=== PATIENT | female | born 1985 | race Caucasian/White ===

== ENCOUNTER 2017-02-09 00:08 | Emergency (ER) | payer OTHER ==
[~2017-02-09] VITALS: Ht 162.6 cm; Wt 59.0 kg
--- NOTE | 2017-02-09 00:10 | NUR ---
PATIENT BROUGHT IN BY [facility] FROM [facility] FOR OVERDOSE. PER REPORT FROM RESCUE PATIENT TOOK 6 TABS OF XANAX OF UNKOWN DOSE. BLOOD SUGAR ON THE FIELD WAS 63. PATIENT AROUSABLE BUT SLURRED SPEECH.PINPOINT PUPILS UPON ARRIVAL. MD AT BEDSIDE...
--- NOTE | 2017-02-09 00:20 | NUR ---
ER STAFF MEMBERS ATTEMPTING TO PLACE HEP LOCK ON PATIENT BUT PATIENT REFUSING TO STAY STILL FOR HEP LOCK PLACEMENT. DR BUSH MADE AWARE
[2017-02-09] MEDS ORDERED: NALOXONE HCL 0.4 MG/ML AMPUL IM ONE ×3 (00:30→05:15)
--- NOTE | 2017-02-09 00:30 | NUR ---
Line placed in left wrist IV, pt removed line, stating she didnt need it, states she wants to leave hspt, pt stated "you cant keep me here, if i dont want to be here."
[2017-02-09] MEDS ORDERED: NALOXONE HCL 0.4 MG/ML AMPUL ONE ×3 (00:32→05:26)
--- NOTE | 2017-02-09 00:45 | NUR ---
PT WAS GIVEN NARCAN, PT BEGAN TO YELL THAT SHE WANTED TO LEAVE, PT STATED "YOU CAN NOT KEEP ME HERE, I DONT WANT TO BE HERE." ERMD ASSESSED LEVEL OF CONCIOUSNESS, PT ALERT, ORIENTED X 4, (NAME, PLACE, TIME, SITUATION). PT ASKED IF SOMEONE COULD PICK HER UP SHE STATED SHE DID NOT HAVE ANY OF HER FRIENDS OF FAMILY INFO TO CONTACT THEM... PT STOOD UP AND WALKED UNASSISTED OUT OF ER WITH STEADY GAIT... ERMD NOTIFIED....
--- NOTE | 2017-02-09 00:47 | NUR ---
SECURITY ALERTED THAT PT LEAVING, ADVISED SECURITY PT IN RESTROOM, ADVISED TO MONITOR PT MOVEMENT...
--- NOTE | 2017-02-09 00:55 | NUR ---
PATIENT AFTER RECIEVING IM NARCAN PATIENT SPOKE WITH CLEAR SPEECH,A/OX3 AND STATING TO STAFF MEMBERS "I AM LEAVING,YOU CAN'T HOLD ME." PATIENT WALKED OUT OF ER. SECRUITY WAS CALLED AND INFORM PATIENT ELOPED FROM ER AND PATIENT IS IN RESTROOM ER WAITING. INFORM SECRUIY FOR SAFETY OF PATIENT AND OTHER PATIENT IN WAITING ROOM.
--- NOTE | 2017-02-09 01:05 | NUR ---
SECURITY CALLED ER, STATING PT OUTSIDE OF [facility] WITH ALTERED LEVEL OF CONCIOUSNESS, ALSO STATING PT DEFECATED IN PANTS, PT PLACED IN WHEELCHAIR, MOVED TO ROOM, AND CLEANED...
[2017-02-09] MEDS ORDERED: IV NORMAL SALINE 1000 ML BAG IV ONE (01:15)
--- NOTE | 2017-02-09 01:30 | NUR ---
RESTRAINTS PLACED PT IS AGITATED AND COMBATIVE, AND TRYING TO GET OUT OF BED, PT RESISTING MEDICAL TREATMENT, PT NOT ABLE TO STAND ON OWN, PT IS RESTLESS, AND ATTEMPTING TO LEAVE HSP[facility] WITH ALTERED MENTAL STATUS...
--- NOTE | 2017-02-09 01:45 | NUR ---
PHARMACY NOTE: NORMAL SALINE NOT GIVEN, PT PULLED OUT IV LINE, AND REFUSED TO HAVE IV PUT IN...
--- NOTE | 2017-02-09 01:45 | NUR ---
PT CONTINUES IN RESTRAINTS, IN BED, IN SUPINE POSITION, PT CONTINUES TO BE RESTLESS, YELLING AND SCREAMING...
--- NOTE | 2017-02-09 01:50 | NUR ---
pt has laniard with [employer] knife, with small compartment, black residue found inside compartment...pt possibly abused drugs in restroom after walking out, which would account for altered mental status....
[2017-02-09 01:58] LABS: BASOPHILS # (AUTO) 0.1 K/uL (0.0-8.0); BASOPHILS % (AUTO) 0.6 % (0.0-2.0); EOSINOPHILS # (AUTO) 0.2 K/uL (0.0-0.7); EOSINOPHILS % (AUTO) 2.1 % (0.0-7.0); HEMATOCRIT 40.7 % (37-47); HEMOGLOBIN 13.6 G/DL (12.0-16.0); LYMPHOCYTES # (AUTO) 2.2 K/uL (20.0-40.0); LYMPHOCYTES % (AUTO) 21.9 % (20.5-51.5); MEAN CORPUSCULAR HEMOGLOBIN 28.4 UUG (27.0-31.0); MEAN CORPUSCULAR HGB CONC 34 g/dL (32.0-37.0); MEAN CORPUSCULAR VOLUME 84.8 FL (81.0-99.0); MONOCYTES # (AUTO) 0.8 K/uL (2.0-10.0); MONOCYTES % (AUTO) 7.5 % (0.0-11.0); NEUTROPHILS # (AUTO) 6.8 K/uL (1.8-8.9); NEUTROPHILS % (AUTO) 67.9 % (38.5-71.5); PLATELET COUNT (AUTO) 446 K/UL (150-450); RED CELL DISTRIBUTION WIDTH 12.9 % (11.5-14.5); WHITE BLOOD COUNT (AUTO) 10.1 K/UL (4.0-11.2)
--- NOTE | 2017-02-09 02:00 | NUR ---
PT CONTINUES RESTING IN BED, PT OFFERED FOOD, WATER, TOILETTING, ETC, PT REFUSED... WILL CONTINUE TO MONITOR FOR SAFETY, COMFORT, AND PAIN...
--- NOTE | 2017-02-09 02:15 | NUR ---
PT CONTINUES IN RESTRAINTS, RESTLESS, AGITATED, YELLING, AND SCREAMING... PT OFFERED DRINK, PT REFUSED...
[2017-02-09 02:27] LABS: AMMONIA < 10 umol/L (11-32)
[2017-02-09 02:29] LABS: ALANINE AMINOTRANSFERASE 34 U/L (14-59); ALBUMIN 3.5 g/dL (3.4-5.0); ALKALINE PHOSPHATASE 143 U/L (50-136); ASPARTATE AMINOTRANSFERASE 24 U/L (15-37); BILIRUBIN,DIRECT 0.1 mg/dL (0.0-0.2); BILIRUBIN,TOTAL 0.5 mg/dL (0.2-1.0); CARBON DIOXIDE 30 mmol/L (21-32); CHLORIDE 103 mmol/L (98-107); CREATININE 0.8 mg/dL (0.6-1.3); GFR 84 mL/min (>60); GLUCOSE 115 mg/dL (74-106); POTASSIUM 4.2 mmol/L (3.5-5.1); SODIUM SERUM 141 mmol/L (136-145); TOTAL PROTEIN, SERUM 7.5 g/dL (6.4-8.2); UREA NITROGEN, BLOOD 10 mg/dL (7-18)
[2017-02-09 02:30] LABS: ACETAMINOPHEN < 2.0 ug/mL (10-30)
--- NOTE | 2017-02-09 02:30 | NUR ---
PT CONTINUES IN RESTRAINTS, IN BED, AGITATED, RESTLESS... PT OFFERED FOOD, WATER, TOILETTING, ETC, PT REFUSED... WILL CONTINUE TO MONITOR FOR SAFETY, COMFORT, AND PAIN...
[2017-02-09 02:38] LABS: ETHANOL < 3 MG/DL (0-0)
--- NOTE | 2017-02-09 02:45 | NUR ---
PT CONTINUES IN RESTRAINTS, IN BED, AGITATED, RESTLESS... PT OFFERED FOOD, WATER, TOILETTING, ETC, PT REFUSED... WILL CONTINUE TO MONITOR FOR SAFETY, COMFORT, AND PAIN..
--- NOTE | 2017-02-09 03:00 | NUR ---
PT CONTINUES IN RESTRAINTS, IN BED, AGITATED, RESTLESS... PT OFFERED FOOD, WATER, TOILETTING, ETC, PT REFUSED... WILL CONTINUE TO MONITOR FOR SAFETY, COMFORT, AND PAIN..
--- NOTE | 2017-02-09 03:15 | NUR ---
PT CONTINUES IN RESTRAINTS, IN BED, AGITATED, RESTLESS... PT OFFERED FOOD, WATER, TOILETTING, ETC, PT REFUSED... WILL CONTINUE TO MONITOR FOR SAFETY, COMFORT, AND PAIN..
--- NOTE | 2017-02-09 03:30 | NUR ---
PT CONTINUES IN RESTRAINTS, IN BED, AGITATED, RESTLESS... PT OFFERED FOOD, WATER, TOILETTING, ETC, PT REFUSED... WILL CONTINUE TO MONITOR FOR SAFETY, COMFORT, AND PAIN..
--- NOTE | 2017-02-09 03:45 | NUR ---
PT CONTINUES IN RESTRAINTS, IN BED, AGITATED, RESTLESS... PT OFFERED FOOD, WATER, TOILETTING, ETC, PT REFUSED... WILL CONTINUE TO MONITOR FOR SAFETY, COMFORT, AND PAIN..
--- NOTE | 2017-02-09 04:00 | NUR ---
PT CONTINUES IN RESTRAINTS, IN BED, AGITATED, RESTLESS... PT OFFERED FOOD, WATER, TOILETTING, ETC, PT REFUSED... WILL CONTINUE TO MONITOR FOR SAFETY, COMFORT, AND PAIN..
[2017-02-09 04:03] LABS: *BILIRUBIN,URIN NEGATIVE (NEGATIVE); *BLOOD, URINE Trace-intact (NEGATIVE); *COLOR,URINE YELLOW (YELLOW); *KETONES,URINE NEGATIVE (NEGATIVE); *PROTEIN,URINE NEGATIVE (NEGATIVE); LEUKOCYTE ESTERASE ,URINE NEGATIVE (NEGATIVE); NITRITE, URINE NEGATIVE (NEGATIVE); UGLUCOSE NEGATIVE (NEGATIVE)
[2017-02-09 04:08] LABS: *CLARITY,URINE HAZY (CLEAR)
[2017-02-09 04:12] LABS: BACTERIA,URINE FEW /HPF (NONE SEEN); RBC,URINE 0-3 /HPF (0-3); SQUAMOUS EPITHELIAL CELL,UR MANY /HPF (NONE SEEN); WBC,URINE 0-3 /HPF (0-3)
--- NOTE | 2017-02-09 04:15 | NUR ---
PT CONTINUES IN RESTRAINTS, IN BED, AGITATED, RESTLESS... PT OFFERED FOOD, WATER, TOILETTING, ETC, PT REFUSED... WILL CONTINUE TO MONITOR FOR SAFETY, COMFORT, AND PAIN..
--- NOTE | 2017-02-09 04:30 | NUR ---
PT CONTINUES IN RESTRAINTS, IN BED, AGITATED, RESTLESS... PT OFFERED FOOD, WATER, TOILETTING, ETC, PT REFUSED... WILL CONTINUE TO MONITOR FOR SAFETY, COMFORT, AND PAIN..
--- NOTE | 2017-02-09 04:45 | NUR ---
PT CONTINUES IN RESTRAINTS, IN BED, AGITATED, RESTLESS... PT OFFERED FOOD, WATER, TOILETTING, ETC, PT REFUSED... WILL CONTINUE TO MONITOR FOR SAFETY, COMFORT, AND PAIN..
[2017-02-09 05:03] LABS: *AMPHETAMINE, URINE POSITIVE (NEGATIVE); *BARBITURATE, URINE NEGATIVE (NEGATIVE); *CANNABINOID, URINE NEGATIVE (NEGATIVE); *COCCAINE, URINE NEGATIVE (NEGATIVE); *OPIATE, URINE POSITIVE (NEGATIVE); *PHENCYCLIDINE SCREEN,URINE NEGATIVE (NEGATIVE)
[2017-02-09] MEDS ORDERED: OLANZAPINE 10 MG VIAL IM ONE ×2 (07:00→07:03)
--- NOTE | 2017-02-09 07:11 | NUR ---
care endorsed to day shift nurse... pt continues sleeping, pt arousable to name, no resp distress noted or reported upon assessment...
--- NOTE | 2017-02-09 07:38 | NUR ---
0711- Yard Motor Operator assumes care. 1st contact with patient is asleep, easily arousable, non-verbal at this time, SAMPSON, respiration:easy, frequently moves on the gurney with eyes close, for discharge per MD when able to walk with steady gait and more alert.
--- NOTE | 2017-02-09 08:59 | NUR ---
Patient is more awake, ambulated to bathroom with slow unassisted gait, still non-verbal.
--- NOTE | 2017-02-09 09:50 | NUR ---
0930- Patient refused CT scan, notified. Patient went back to room 1A unassisted. Patient removed her adult diaper and washed her hands appropriately, still non-verbal at this time.
--- NOTE | 2017-02-09 10:57 | NUR ---
Patient is resting comfortably in bed with eyes closed, NAD
--- NOTE | 2017-02-09 12:01 | NUR ---
"I want a phone." per patient's verbalization. Telephone was offerred but patient went back to sleep instead.
--- NOTE | 2017-02-09 12:03 | NUR ---
endorsed to [facility] dela cruz
--- NOTE | 2017-02-09 13:03 | NUR ---
1244- Patient verbally asked for bus tokens to go to [facility] but refused social work instructor at this time. 3 bus tokens were provided by nursing office. 1303- Patient is again not talking after being told that she is medically cleared by our ER doctor. Security assistance was called to escort the patient out of ER.
[2017-02-09 13:08] VITALS: BP 119/66
--- NOTE | 2017-02-09 13:11 | NUR ---
Patient given verbal discharge instructions. Patient verbalizes understanding of instructions. Patient is ambulatory with steady gait. Refuses offer of half-way placement and to sign the discharge papers. Patient given list of available shelters in surrounding area.
--- NOTE | 2017-02-09 13:11 | NUR ---
Patient was escorted by security officers out of our ER department. Patient ambulated with steady gait with 3 bus tokens and patient's denture x1.
--- NOTE | 2017-02-09 13:47 | NUR ---
12:25pm: SS consult was requested. SW tried meeting with patient but was unable to arouse her. Patient was asleep on the bed in the ED room. SW called patient's name 4 times, but no response. RN Francia also present. Unable to meet with patient due to not being able to arouse patient.
== END 2017-02-09 13:12 | disposition home or self-care (01) ==
LOC: ER 00:11
DX: F11.90 Opioid use, unspecified, uncomplicated (principal)
CPT/HCPCS: 36415; 51702; 70030-TC; 80307; 85025; 85730; 93005; A4663; G0480-TC; G6040-TC; J2310; J2358; J7030